=== PATIENT | female | born 1995 | race Caucasian/White ===

== ENCOUNTER → 2017-12-21 12:24 | Outpatient (CLI) | payer OTHER, SELFPAY ==
[2017-12-21 17:56] LABS: Chlamydia Trachomatis by PCR Negative (Negative); Neisserai gonorrhoeae by PCR Negative (Negative); Probe Check PASS; Sample Adequacy Control PASS; Specimen Processing Control PASS
== END ==
DX: N39.0 Urinary tract infection, site not specified (principal)
CPT/HCPCS: 87077; 87086; 87088; 87186; 87491; 87591

== ENCOUNTER → 2018-11-22 | Outpatient (CLI) | payer OTHER, SELFPAY ==
--- NOTE | 2018-11-22 15:58 | RAD_ITS ---
STUDY: X-RAY - CERVICAL SPINE REASON FOR EXAM: Female, 23 years old. Left paresthesias TECHNIQUE: 5 view(s) of the cervical spine were obtained. COMPARISON: None FINDINGS: Straightening of the cervical spine most likely secondary to muscle spasm. No fractures or dislocations. No disc disease The intervertebral foramina are patent and the prevertebral soft tissues are normal. RAD/Cerv Spine 4 or 5 Views IMPRESSION: Straightening of the cervical spine most likely secondary to muscle spasm. No fractures. No acute disease. Electronically Signed: Gautam Gama MD at 7:19 EDT Tel , Service support ,
[2018-11-22 17:40] LABS: Hematocrit 43.1 % (37-47); Mean Corp Hgb Conc 32.5 g/gl (32-36); Mean Corpuscular Hgb 28.7 pg (27.0-32.0); Mean Corpuscular Volume 88.5 fL (81-99); Mean Platelet Vol. 11.7 fl (6.2-12.0); Platelet Count 294 K/mm3 (150-450); RBC Distribution Width SD 42.2 fl (35.1-43.9); Red Blood Count 4.87 M/mm3 (4.2-5.4); White Blood Count 6.6 K/mm3 (4.4-11.0)
[2018-11-22 17:45] LABS: Scan Indicated on CBC? Y/N NO
[2018-11-22 17:50] LABS: Anion Gap 4 (5-15); BUN 11 mg/dL (7-18); BUN/Creat Ratio 16.1 RATIO (10-20); Calcium,Total 8.9 mg/dL (8.5-10.1); Chloride 107 mmol/L (98-107); Creatinine, Serum 0.68 mg/dL (0.55-1.02); EST Glomerular Filtration Rate 116 mL/min (>60); Est Glom Filt Rate - Afr Amer 140 mL/min (>60); Ferritin 33 ng/mL (8-252); Glucose 81 mg/dL (74-106); Iron 75 ug/dL (50-170); Magnesium 2.2 mg/dL (1.6-2.6); Rheumatoid Factor < 10.0 IU/mL (<15); Sodium Level 140 mmol/L (136-145); Thyroid Stim Hormone (TSH) 1.09 uIU/mL (0.358-3.74)
[2018-11-22 18:03] LABS: Erythrocyte Sedimentation Rate 13 mm/hr (0-20)
[2018-11-22 18:48] LABS: Vitamin B12 409 pg/mL (211-911); Vitamin D,25 Hydroxy 23.3 ng/mL (29.95-100.01)
[2018-11-24 16:07] LABS: ANTINUCLEAR ANTIBODIES DIRECT Negative (Negative)
== END | disposition home or self-care (01) ==
LOC: MTLAB 15:57
PROVIDERS: Family Provider Family Medicine; PCP Family Medicine; Referring Provider Family Medicine; Visit Provider Family Medicine
DX: R20.2 Paresthesia of skin (principal)
CPT/HCPCS: 36415; 72050; 80048; 82306; 82607; 82728; 83540; 83735; 84443; 85027; 85652; 86038; 86140; 86431

== ENCOUNTER 2019-03-07 01:42 | Emergency (ER) | payer OTHER, SELFPAY ==
[2019-03-07 01:43] VITALS: BP 138/99; PULSE 96; RESP 17; TEMP 36.7; O2SAT 97; BMI 29.2
[2019-03-07] MEDS: Fluorescein 1 MG STRIP 1 STRIP LEFT EYE (02:20)
[2019-03-07] MEDS: Tetracaine 0.5% Ophthalmic Bottle 1 DRP LEFT EYE (02:20)
--- NOTE | 2019-03-07 03:43 | ED.RN ---
see down time charting from 2 am to 4 am
[2019-03-07 03:45] VITALS: PULSE 86; RESP 16; O2SAT 98
--- NOTE | 2019-04-10 22:23 | ED.DCSUM_ITS ---
- ER Visit Summary Date of Service: 04/10/19 Chief Complaint: I think I scratched my eye. History of Present Illness: This patient was seen during downtime. No dictation services were provided. I was later asked to provide a dictation in addition to the paper template that was completed at the time of the visit. This note is completed from memory and review of the paper template.The patient is a 23 F who presents with a chief complaint of I think I scratched my eye. She uses corrective contact lenses but has not used them last couple of days. She complains of a burning sensation left eye. She denies visual changes. Review of systems otherwise negative. Physical Examination: Afebrile vitals unremarkable Normal conjunctive a no erythema no injection no foreign body was visualized. Normal inspection of the cornea no foreign body or abrasion no dye uptake Extraocular motion intact without pain or palsy Pupils equally round reactive to light Anterior chamber deep and quiet Heart regular rate and rhythm Lungs clear Test Results: None performed Emergency Department Course and Treatment: Tetracaine and fluorescein were instilled left eye and slit-lamp examination performed. This was unremarkable as noted above. Patient was discharged. Treatment Plan: [] Disposition: Discharge Impression: Acute eye pain This note was generated with [employer] dictation software. It may contain incorrect words, spelling, and punctuation that were not noted in review of the chart prior to signing ED Disposition - Plan for ED Patient: Disposition: Home or Assisted Living Referrals: Anthony Abdalla MD [Primary Care Provider] -
== END 2019-03-07 02:34 | disposition home or self-care (01) ==
LOC: ED 05:36
PROVIDERS: Emergency Provider Emergency Medicine; Family Provider Family Medicine; PCP Family Medicine
DX: H57.12 Ocular pain, left eye (principal)
CPT/HCPCS: 99283

== ENCOUNTER 2019-03-19 00:18 | Emergency (ER) | payer OTHER, SELFPAY ==
[2019-03-19 00:19] VITALS: BP 140/80; PULSE 99; RESP 15; TEMP 36.9; O2SAT 96; BMI 30.1
--- NOTE | 2019-03-19 00:33 | ED.VIS.GEN ---
History of Present Illness Chief Complaint: Eye Problem Informant: Patient Narrative: Stated she took her contact out before bed and woke up with a irritated left eye. She is unsure of the cause. She did not injure her eye. It feels irritated like something is in it. No home treatment. She had a similar episode 2 weeks ago and was seen with a normal exam. She was given bacitracin ophthalmic and use this for a couple days and her symptoms resolved. They are back today. Her contact is not old. She denies any visual difficulty. Prior similar symptoms: No Past Medical History - Allergies and Home Meds Allergies/Adverse Reactions: Allergies No Known Allergies Allergy (Verified 03/19/19 00:23) Primary Care Physician: Anthony Abdalla MD [Primary Care Provider] - Prior records reviewed: Yes Past Medical History: None Surgical History: noncontributory Lives: With Family Smoking Status: Never smoker Alcohol: None Drugs: None Review of Systems General: Denies: Chills, Fever, Sweats Eyes: Reports: - - Left eye irritation. Denies: Visual changes - bilaterally, Diplopia ENT: Denies: Rhinorrhea, Sore throat Cardiovascular: Denies: Chest pain, Palpitations Respiratory: Denies: Dyspnea, Cough, Dyspnea on exertion Gastrointestinal: Denies: Abdominal pain, Nausea, Vomiting, Diarrhea, Melena, Hematochezia Genitourinary: Denies: Dysuria, Hematuria, Frequency Musculoskeletal: Denies: Back pain, Extremity Pain Skin: Denies: Rash, Wounds Neurological: Denies: Headache, Weakness, Numbness Physical Exam Vital Signs/Narrative: Vital Signs Temp Pulse Resp BP Pulse Ox 03/19/19 00:19 98.5 F 99 15 140/80 H 96 Diagnostic/Tx/Re-eval - Medical Decision Making Fluorescein was instilled into her left eye after tetracaine anesthesia with no uptake. Patient just has a mild conjunctivitis. There is no foreign body ulceration or abrasion. She has bacitracin ophthalmic leftover. She only took it for 2 days. She will take it for the next week. She was given follow-up with ophthalmology. At this time I feel she is has a conjunctivitis. This could be irritant from her contact ED Disposition - Plan for ED Patient: Disposition: Home or Assisted Living Diagnosis: Conjunctivitis Instructions: CONJUNCTIVITIS, Allergic Referrals: Charley Rosado MD [STAFF PHYSICIAN] -
[2019-03-19] MEDS: Fluorescein 1 MG STRIP 1 STRIP LEFT EYE (01:04)
[2019-03-19] MEDS: Tetracaine 0.5% Ophthalmic Bottle 1 DRP LEFT EYE (01:04)
== END 2019-03-19 01:18 | disposition home or self-care (01) ==
PROVIDERS: Emergency Provider Emergency Medicine; Family Provider Family Medicine; PCP Family Medicine
DX: H10.9 Unspecified conjunctivitis (principal)
CPT/HCPCS: 99282

== ENCOUNTER → 2021-03-04 16:46 | Outpatient (CLI) | payer OTHER, SELFPAY ==
[2021-03-04 18:03] LABS: Hematocrit 43.4 % (37-47); Hemoglobin 13.6 g/dL (12.0-15.0); Mean Corp Hgb Conc 31.3 g/dL (32-36); Mean Corpuscular Volume 89.3 fL (81-99); Mean Platelet Vol. 11.5 fl (6.2-12.0); Platelet Count 350 K/mm3 (150-450); RBC Distribution Width CV 13.1 % (11.6-14.6); RBC Distribution Width SD 43.1 fl (35.1-43.9); Red Blood Count 4.86 M/mm3 (4.2-5.4); White Blood Count 7.8 K/mm3 (4.4-11.0)
[2021-03-04 18:44] LABS: ALB/GLOB Ratio 0.8 RATIO (0.9-2.4); AST(SGOT) 14 U/L (15-37); Alanine Aminotransfer ALT/SGPT 22 U/L (13-56); Albumin, Serum 3.6 g/dL (3.2-5.0); Alkaline Phosphatase 58 U/L (45-117); Anion Gap 5 (5-15); BUN 9 mg/dL (7-18); BUN/Creat Ratio 14.5 RATIO (10-20); Calcium,Total 9.2 mg/dL (8.5-10.1); Chloride 108 mmol/L (98-107); Cholesterol 216 mg/dL (200); Creatinine, Serum 0.62 mg/dL (0.55-1.02); EST Glomerular Filtration Rate 127 mL/min (>60); Est Glom Filt Rate - Afr Amer 153 mL/min (>60); Globulin 4.4 g/dL (2.2-4.2); Glucose 67 mg/dL (74-106); High Density Lipoprotein 56 mg/dL; Potassium 3.7 mmol/L (3.5-5.1); Sodium Level 139 mmol/L (136-145); Thyroid Stim Hormone (TSH) 1.64 uIU/mL (0.358-3.74); Triglycerides 189 mg/dL; Very Low Density Lipoprotein 38 mg/dL (5-40)
[2021-03-04 18:53] LABS: Vitamin B12 332 pg/mL (211-911); Vitamin D,25 Hydroxy 24.9 ng/mL
== END ==
PROVIDERS: PCP Family Medicine; Referring Provider Family Medicine; Visit Provider Family Medicine
DX: R53.83 Other fatigue (principal); Z13.220 Encounter for screening for lipoid disorders
CPT/HCPCS: 36415; 80053; 80061; 82306; 82607; 84443; 85027